=== PATIENT | male | born 1940 | race Caucasian/White ===

== ENCOUNTER 2019-01-19 16:36 | Emergency (ER) | payer MEDICARE, OTHER ==
[~2019-01-19] VITALS: Ht 170.2 cm; Wt 109.1 kg
[~2019-01-19 16:36] MED LIST: ASPIRIN325 MG PO; BETAPACE 120 M120 MG PO; COZAAR25 MG PO; FLOMAX0.4 MG PO; LASIX40 MG PO; LIPITOR80 MG PO; OXYBUTYNIN CHLOR5 MG PO; PLAVIX75 MG PO; VITAMIN D31000 UNI2 PO
[2019-01-19 16:47] VITALS: Ht 170.2 cm; Wt 109.1 kg
[2019-01-19] MEDS ORDERED: ASPIRIN325 MG PO (16:49)
[2019-01-19 17:08] LABS: BASOPHILS 0.1 % (0-2); EOSINOPHILS 2.4 % (0-7); HEMATOCRIT 40.1 % (42.0-54.0); HEMOGLOBIN 13.6 g/dL (13.5-17.5); IMMATURE GRANULOCYTES 0.2 % (0-5); LYMPHOCYTES 26.4 % (15-50); MCH 31.7 pg (26.0-34.0); MCHC 33.9 g/dL (31.0-37.0); MCV 93.5 fL (80.0-100.0); MEAN PLATELET VOLUME 9.6 fL (7.4-10.4); MONOCYTES 9.2 % (2-11); NEUTROPHILS 61.7 % (40-80); RBC 4.29 10x6/uL (4.20-6.10); RDW 14.7 % (11.5-14.5); WBC 9.3 10x3/uL (4.8-10.8)
[2019-01-19 17:21] LABS: PLATELET COUNT 188 10x3/uL (130-400)
[2019-01-19 17:22] LABS: APTT 32.3 SECONDS (22.8-39.4); INR 1.23 (0.85-1.17)
[2019-01-19 17:56] LABS: ALBUMIN 3.8 g/dL (3.4-5.0); ALKALINE PHOSPHATASE 111 U/L (46-116); ALT (SGPT) 23 U/L (10-68); BILIRUBIN - TOTAL 0.67 mg/dL (0.2-1.3); CALCIUM 8.9 mg/dL (8.5-10.1); CARBON DIOXIDE 31.3 mmol/L (21.0-32.0); CHLORIDE - SERUM 102 mmol/L (98-107); CREATINE KINASE 292 UL (21-232); CREATININE - SERUM 1.1 mg/dL (0.6-1.3); MAGNESIUM - SERUM 2.1 mg/dL (1.8-2.4); PROTEIN - SERUM 7.7 g/dL (6.4-8.2); SODIUM 140 mmol/L (136-145); THYROID STIMULATING HORMONE 1.59 uIU/mL (0.36-3.74); TROPONIN-I < 0.017 ng/mL (0.000-0.060); UREA NITROGEN 18 mg/dL (7-18); eGFR NON AFRICAN AMERICAN 69 mL/min (90-120)
[2019-01-19 17:57] LABS: CALC OSMOLALITY 283 mosm/kg (275-300); GLUCOSE 144 mg/dL (74-106)
[2019-01-19 17:59] LABS: POTASSIUM - SERUM 2.9 mmol/L (3.5-5.1)
[2019-01-19 18:39] VITALS: BP 167/91
== END 2019-01-19 21:21 | disposition other institution (70) ==
LOC: D.ER 16:36
PROVIDERS: Family Medicine
DX: R47.81 Slurred speech (principal)

== ENCOUNTER 2020-03-01 14:47 | Emergency (ER) | payer MEDICARE ==
[~2020-03-01] VITALS: Ht 170.2 cm; Wt 104.5 kg
[2020-03-01 14:49] VITALS: BP 116/69; Ht 170.2 cm; Wt 104.5 kg
[2020-03-01] MEDS ORDERED: TORADOL10 MG PO (16:22)
== END 2020-03-01 17:10 | disposition home or self-care (01) ==
LOC: D.ER 14:47
DX: S00.83XA Contusion of other part of head, initial encounter (principal); W01.0XXA Fall on same level from slipping, tripping and stumbling without subsequent striking against object, initial encounter; S16.1XXA Strain of muscle, fascia and tendon at neck level, initial encounter; S60.051A Contusion of right little finger without damage to nail, initial encounter; I10 Essential (primary) hypertension; I25.2 Old myocardial infarction; Z95.5 Presence of coronary angioplasty implant and graft; I48.91 Unspecified atrial fibrillation; I25.119 Atherosclerotic heart disease of native coronary artery with unspecified angina pectoris

== ENCOUNTER 2020-10-08 16:13 | Emergency (ER) | payer OTHER ==
[~2020-10-08] VITALS: Ht 170.2 cm; Wt 100.0 kg
[~2020-10-08 16:13] MED LIST changes: +TORADOL10 MG PO
[2020-10-08 16:15] VITALS: Ht 170.2 cm; Wt 100.0 kg
[2020-10-08] MEDS ORDERED: TORADOL10 MG PO (19:22)
[2020-10-08 23:37] VITALS: BP 126/72
== END 2020-10-08 23:38 | disposition home or self-care (01) ==
LOC: D.ER 16:13
DX: M25.462 Effusion, left knee (principal); M16.0 Bilateral primary osteoarthritis of hip; Z86.73 Personal history of transient ischemic attack (TIA), and cerebral infarction without residual deficits; I10 Essential (primary) hypertension; N40.0 Benign prostatic hyperplasia without lower urinary tract symptoms

== ENCOUNTER 2020-10-23 10:31 | Emergency (ER) | payer OTHER ==
[~2020-10-23] VITALS: Ht 170.2 cm; Wt 90.9 kg
[2020-10-23 10:33] VITALS: Ht 170.2 cm; Wt 90.9 kg
[2020-10-23] MEDS ORDERED: ELIQUIS5 MG PO (11:05)
[2020-10-23 11:25] LABS: CALC OSMOLALITY 283 mosm/kg (275-300); CALCIUM 9.4 mg/dL (8.5-10.1); CHLORIDE - SERUM 103 mmol/L (98-107); CREATININE - SERUM 1.3 mg/dL (0.6-1.3); GLUCOSE 136 mg/dL (74-106); POTASSIUM - SERUM 4.1 mmol/L (3.5-5.1); SODIUM 140 mmol/L (136-145); UREA NITROGEN 20 mg/dL (7-18); eGFR NON AFRICAN AMERICAN 56 mL/min (90-120)
[2020-10-23 11:33] LABS: BASOPHILS 0.5 % (0-2); HEMOGLOBIN 13.5 g/dL (13.5-17.5); LYMPHOCYTES 24.5 % (15-50); MCH 31.9 pg (26.0-34.0); MCHC 32.9 g/dL (31.0-37.0); MCV 97.1 fL (80.0-100.0); MEAN PLATELET VOLUME 8.8 fL (7.4-10.4); RBC 4.23 10x6/uL (4.20-6.10); RDW 13.9 % (11.5-14.5); WBC 11.7 10x3/uL (4.8-10.8)
[2020-10-23 11:37] LABS: ALBUMIN 3.6 g/dL (3.4-5.0); ALKALINE PHOSPHATASE 132 U/L (30-120); ALT (SGPT) 25 U/L (10-68); AMYLASE - SERUM 23 U/L (25-115); LIPASE 79 U/L (73-393); PROTEIN - SERUM 7.1 g/dL (6.4-8.2); TROPONIN-I < 0.017 ng/mL (0.000-0.060)
[2020-10-23 11:38] LABS: PLATELET COUNT 254 10x3/uL (130-400)
[2020-10-23 16:49] VITALS: BP 140/88
== END 2020-10-23 16:58 | disposition other institution (70) ==
LOC: D.ER 10:31
PROVIDERS: Emergency Medicine
DX: K92.2 Gastrointestinal hemorrhage, unspecified (principal); K92.0 Hematemesis; I83.90 Asymptomatic varicose veins of unspecified lower extremity; Z86.73 Personal history of transient ischemic attack (TIA), and cerebral infarction without residual deficits; I10 Essential (primary) hypertension